=== PATIENT | female | born 1975 | race Asian ===

== ENCOUNTER 2018-12-10 17:39 | Emergency (ER) | payer OTHER ==
[2018-12-10] MEDS ORDERED: BUFFERED LIDOCAINE 10 ML SYRINGE SUBQ STA (18:00)
[2018-12-10] MEDS ORDERED: AMOX/CLAV 875 MG/125 MG TABLET PO STA (18:00)
--- NOTE | 2018-12-10 18:02 | ED Physician Documentation ---
PD HPI UPPER EXT INJURY - Stated complaint Stated Complaint: RT HAND DOG BITE - Chief complaint Chief Complaint: Wound - History obtained from History obtained from: Patient - History of Present Illness Location: Right (43-year-old woman, right-handed, up-to-date on tetanus was bitten by her own healthy fully immunized dog while trying to break up a dog bite at home just prior to arrival. She has multiple lacerations on the right hand and a shallow laceration on the right ankle no other injuries.) Review of Systems Constitutional: reports: Reviewed and negative Cardiac: reports: Reviewed and negative Respiratory: reports: Reviewed and negative PD PAST MEDICAL HISTORY - Past Medical History Past Medical History: No - Past Surgical History Past Surgical History: Yes Ortho: Other - Present Medications Home Medications: Ambulatory Orders Medication Instructions Recorded Confirmed Amox/Clav 875/125 [Augmentin] 1 each PO Q12H #14 tablet 12/10/18 Hydrocodone/Acetaminophen 1 - 2 each PO Q6H PRN #14 tablet 12/10/18 [Hydrocodon-Acetaminophen 5-325] - Allergies Allergies/Adverse Reactions: Allergies Allergy/AdvReac Type Severity Reaction Status Date / Time No Known Drug Allergies Allergy Verified 12/10/18 17:47 - Social History Does the pt smoke?: No Smoking Status: Never smoker Does the pt drink ETOH?: No Does the pt have substance abuse?: No - Immunizations Immunizations are current?: Yes - POLST Patient has POLST: No PD ED PE NORMAL - Vitals Vital signs reviewed: Yes - General General: Alert and oriented X 3, No acute distress - Extremities Extremities: Other (On the right hand there is a 2 cm lac on the palmar side at the level of the MCP of the third digit, and then there is a longitudinal laceration on the ulnar side of the third digit that crosses over the DIP. She has normal neurovascular function of the tips of all fingers. There is a single puncture wound on the palm just distal to the thenar musculature, and a single puncture wound in the middle of the dorsum of that hand. There is a 2 cm very shallow laceration/abrasion over the medial malleolus of the right ankle that does not require wound care other than cleansing and a bandage.) - Neuro Neuro: Alert and oriented X 3, Normal speech Results - Vitals Vitals: Vital Signs - 24 hr 12/10/18 12/10/18 17:47 19:20 Temperature 36.5 C Heart Rate 102 H 92 Respiratory 14 16 Rate Blood Pressure 134/91 H 138/89 H O2 Saturation 94 98 Oxygen O2 Source Room air Procedures - Laceration (location) R palm Length in cm: 3 Wound type: Other (3 cm curvilinear laceration and subcutaneous fat at the level of the MCP of the right hand third digit over a little bit onto the ulnar side of the second digit. Normal flexor tendon and neurovascular function. It was heavily contaminated with dirt and debris, after local anesthetic it was thoroughly scrubbed and irrigated with copious normal saline.) Skin layer closure: Nylon, Interrupted, Size #-0 - enter number (4-0), Sutures - enter # (7) Other: Tetanus UTD Complexity: Intermediate Right third finger, Length in cm: 2.8 Wound type: Linear, Into subcut fat, Other (It was heavily contaminated with dirt and debris, after a digital block it was thoroughly scrubbed and irrigated with copious normal saline and a little bit of fat was debrided sharply.) Neurovascular status: Sensory intact, Motor intact, Vascular intact Anesthesia: Lidocaine 1%, With bicarb Skin layer closure: Nylon, Interrupted, Size #-0 - enter number (4-0), Sutures - enter # (6) Other: Tetanus UTD Complexity: Simple - Splint (location) RUE Splint applied by: Nurse Type of splint: Fiberglass, Short arm, Ulnar gutter Other: Patient tolerated well, No complications, Neurovascular intact PD MEDICAL DECISION MAKING - ED course ED course: She has a fracture on x-ray of the proximal fifth metacarpal. There are no wounds in this area so I do not think it represents an open fracture. She was placed in an ulnar gutter splint, she will follow-up with an orthopedic surgeon on return home. She lives near [place]. Departure - Departure Disposition: 01 Home, Self Care Clinical Impression: Fracture of fifth metacarpal bone, Dog bite of multiple sites of hand and fingers Condition: Good Record reviewed to determine appropriate education?: Yes Instructions: ED Cast Care Fiberglass, ED Fx Hand Closed, ED Laceration Hand Prescriptions: Amox/Clav 875/125 [Augmentin] 1 each PO Q12H #14 tablet Hydrocodone/Acetaminophen [Hydrocodon-Acetaminophen 5-325] 1 - 2 each PO Q6H PRN #14 tablet PRN Reason: pain Comments: Keep the splint on and dry, you need to follow-up with an orthopedic surgeon within the week in your home. Call Thursday for an appointment. Return for new or worsening symptoms. The stitches need to come out in about 2 weeks. Discharge Date/Time: 12/10/18 19:48
[2018-12-10] MEDS ORDERED: HYDROcod/ACET 5/325 Prepack 4 PO STA (18:57)
--- NOTE | 2018-12-10 19:09 | XRAY Report ---
Reason: mult dog bites/lacs Procedure Date: 12/10/2018 Accession Number: [id number] / [id number] Procedure: XR - Hand 3 View RT CPT Code: FULL RESULT: EXAM: RIGHT HAND RADIOGRAPHY EXAM DATE: 12/10/2018 06:43 PM. CLINICAL HISTORY: Mult dog bites/lacs. COMPARISON: None. TECHNIQUE: 3 views. FINDINGS: Bones: There is a fracture at the base of the fifth metatarsal with mild apex dorsal angulation. No additional fracture identified. Joints: Normal. No subluxation. Soft Tissues: There is soft tissue swelling and gas dorsally. Probable laceration of the third finger. No radiodense foreign body. IMPRESSION: Mildly angulated fracture of the fifth metacarpal near the base. Dorsal soft tissue swelling and gas. [facility]
[2018-12-10 19:22] VITALS: BP 138/89
== END 2018-12-10 19:48 | disposition home or self-care (01) ==
LOC: ED 17:39
DX: S62.316A Displaced fracture of base of fifth metacarpal bone, right hand, initial encounter for closed fracture (principal); S61.411A Laceration without foreign body of right hand, initial encounter; S91.011A Laceration without foreign body, right ankle, initial encounter; W54.0XXA Bitten by dog, initial encounter; Y93.K9 Activity, other involving animal care
CPT/HCPCS: 12002; 12042; 73130; 99283; A9270